=== PATIENT | male | born 1995 | race Caucasian/White ===

== ENCOUNTER 2018-12-22 00:34 | Emergency (ER) | payer SELFPAY ==
[~2018-12-22] VITALS: Ht 177.8 cm; Wt 79.4 kg
[2018-12-22 01:34] VITALS: BP 120/72
== END 2018-12-22 04:13 | disposition home or self-care (01) ==
LOC: ER 00:34
DX: M79.652 Pain in left thigh (principal); M25.512 Pain in left shoulder; V43.52XA Car driver injured in collision with other type car in traffic accident, initial encounter; Y93.89 Activity, other specified; Y99.8 Other external cause status; Y92.410 Unspecified street and highway as the place of occurrence of the external cause
CPT/HCPCS: 70450; 72125; 73030; 73560